=== PATIENT | male | born 1985 | race Caucasian/White ===

== ENCOUNTER 2021-02-05 10:56 | Emergency (ER) | payer MEDICAID ==
[~2021-02-05] VITALS: Ht 167.6 cm; Wt 68.8 kg
[~2021-02-05 10:56] MED LIST: MUPI15CR TP; NO HOME MEDS
[2021-02-05 11:07] VITALS: BP 135/86
[2021-02-05] MEDS ORDERED: LIDOcaine 1% W/epiNEPHrine 1:200,000 10ml vial IJ ONE (11:10)
[2021-02-05] MEDS ORDERED: CEPH250T PO (11:42)
[2021-02-05] MEDS ORDERED: SULF1TAB45 PO (11:42)
== END 2021-02-05 11:53 | disposition home or self-care (01) ==
LOC: ER 10:56
DX: L02.214 Cutaneous abscess of groin (principal)
CPT/HCPCS: 10060; 99283

== ENCOUNTER → 2021-03-16 | Emergency (ER) | payer MEDICAID ==
[~2021-03-16] VITALS: Ht 167.6 cm; Wt 70.5 kg
[~2021-03-16] MED LIST changes: +DOXY-135 PO; +LIDOcaine 1% W/epiNEPHrine 1:200,000 10ml vial IJ ONE
[2021-03-16 12:07] VITALS: BP 128/86
== END | disposition home or self-care (01) ==
LOC: ER 12:04
DX: L02.31 Cutaneous abscess of buttock (principal); Z79.899 Other long term (current) drug therapy
CPT/HCPCS: 10060; 99283

== ENCOUNTER 2021-08-28 18:18 | Emergency (ER) | payer OTHER, MEDICAID ==
[~2021-08-28] VITALS: Ht 167.6 cm; Wt 70.5 kg
[~2021-08-28 18:18] MED LIST changes: -DOXY-135 PO; -LIDOcaine 1% W/epiNEPHrine 1:200,000 10ml vial IJ ONE
[2021-08-28 18:33] VITALS: BP 131/83
[2021-08-28] MEDS ORDERED: IBUP-1986 PO (19:39)
== END 2021-08-28 19:58 | disposition home or self-care (01) ==
LOC: ER 18:18
DX: S63.8X1A Sprain of other part of right wrist and hand, initial encounter (principal); M25.531 Pain in right wrist; Z79.899 Other long term (current) drug therapy; V49.3XXA Car occupant (driver) (passenger) injured in unspecified nontraffic accident, initial encounter; Y93.89 Activity, other specified; Y92.89 Other specified places as the place of occurrence of the external cause; Y99.8 Other external cause status
CPT/HCPCS: 29125; 73090; 99283

== ENCOUNTER 2023-10-25 10:26 | Emergency (ER) | payer MEDICAID ==
[~2023-10-25] VITALS: Ht 167.6 cm; Wt 63.2 kg
[~2023-10-25 10:26] MED LIST changes: +IBUP-1986 PO
[2023-10-25 10:41] VITALS: BP 116/76; PULSE 85; RESP 18; TEMP 98.2; O2SAT 98
== END 2023-10-25 12:50 | disposition left against medical advice (07) ==
LOC: ER 10:27
DX: S09.90XA Unspecified injury of head, initial encounter (principal); Z79.899 Other long term (current) drug therapy; Z79.2 Long term (current) use of antibiotics; Y08.89XA Assault by other specified means, initial encounter; Y93.89 Activity, other specified; Y92.89 Other specified places as the place of occurrence of the external cause; Y99.8 Other external cause status
CPT/HCPCS: 70450; 99284

== ENCOUNTER 2023-10-25 13:50 | Emergency (ER) | payer MEDICAID ==
[~2023-10-25] VITALS: Ht 167.6 cm; Wt 63.0 kg
[2023-10-25 14:00] VITALS: BP 116/84; PULSE 74; TEMP 99.5; O2SAT 98
[2023-10-25 14:20] VITALS: RESP 16
[2023-10-25 15:18] LABS: ALBUMIN 3.7 G/DL (3.4-5.0); ANION GAP 6 (8-16); BLOOD UREA NITROGEN 26 MG/DL (7-18); BUN/CREATININE RATIO 32.5 (10.0-20.0); CALCIUM 8.2 MG/DL (8.5-10.1); CHLORIDE 101 MMOL/L (99-107); GLUCOSE 80 MG/DL (70-104); POTASSIUM 3.9 MMOL/L (3.5-5.1); SALICYLATE 1.2 MG/DL (4.0-20.0); SODIUM 138 MMOL/L (135-145); TOTAL CARBON DIOXIDE 31.2 MMOL/L (24-32); eCRCL 112 ML/MIN; eGFR > 90 ML/MIN
[2023-10-25 15:19] LABS: EOSINOPHILS # (AUTO) 0.3 X10'3 (0-0.9); WHITE BLOOD COUNT 7.5 X10'3 (4.5-11.0)
[2023-10-25 15:20] LABS: ACETAMINOPHEN < 2.0 UG/ML (10-30); ETHANOL < 10 MG/DL (<10)
[2023-10-25 15:21] LABS: BASOPHILS # (AUTO) 0.1 X10'3 (0-0.2); BASOPHILS % (AUTO) 1.1 % (0-1); EOSINOPHILS % (AUTO) 3.4 % (0-6); HEMATOCRIT 39.1 % (42.0-52.0); HEMOGLOBIN 13.1 g/dl (14.0-17.9); LYMPHOCYTES # (AUTO) 1.9 X10'3 (1.1-4.8); LYMPHOCYTES % (AUTO) 25.8 % (21-51); MEAN CORPUSCULAR HEMOGLOBIN 30.5 PG (27.0-31.0); MEAN CORPUSCULAR HGB CONC 33.6 g/dL (33.0-36.5); MEAN CORPUSCULAR VOLUME 90.8 FL (78-98); MEAN PLATELET VOLUME 7.3 FL (7.4-10.4); MONOCYTES # (AUTO) 0.8 X10'3 (0-0.9); MONOCYTES % (AUTO) 10.8 % (2-12); NEUTROPHILS # (AUTO) 4.4 X10'3 (1.8-7.7); NEUTROPHILS % (AUTO) 58.9 % (42-75); PLATELET COUNT 318 X10'3 (140-440); RED CELL DISTRIBUTION WIDTH 13.7 % (11.5-14.5)
[2023-10-25 15:46] LABS: BILIRUBIN,URINE NEGATIVE (Neg); CLARITY,URINE CLEAR (Clear); COLOR,URINE YELLOW (Yellow); GLUCOSE, URINE NEGATIVE (Neg); KETONES,URINE NEGATIVE (Neg); LEUKOCYTE ESTERASE ,URINE NEGATIVE (Neg); NITRITES, URINE NEGATIVE (Neg); OCCULT BLOOD,URINE TRACE-INTACT (Neg); PROTEIN,URINE NEGATIVE (Neg); UROBILINOGEN,URINE 0.2 E.U/dL (0.2-1.0)
[2023-10-25 15:53] LABS: URINE AMPHETAMINE SCREEN POSITIVE (Neg); URINE BARBITUATE SCREEN NEGATIVE (Neg); URINE BENZODIAZEPINES SCREEN NEGATIVE (Neg); URINE CANNABINOID SCREEN POSITIVE (Neg); URINE COCAINE SCREEN NEGATIVE (Neg); URINE METHADONE SCREEN NEGATIVE (Neg); URINE OPIATE SCREEN NEGATIVE (Neg); URINE PHENCYCLIDINE SCREEN NEGATIVE (Neg)
[2023-10-25 15:55] LABS: UA COLLECTION TYPE NON-SPECIFIED
[2023-10-25 15:57] LABS: SQUAMOUS EPITHELIAL CELL,UR FEW /LPF (FEW)
[2023-10-25 15:58] LABS: BACTERIA,URINE FEW /HPF (Neg); RBC,URINE 0-2 /HPF (0-2); SPERM FEW /HPF (NEGATIVE); WBC,URINE 0-4 /HPF (0-4)
== END 2023-10-25 16:59 | disposition home or self-care (01) ==
LOC: ER 13:50
DX: S09.90XA Unspecified injury of head, initial encounter (principal); Z20.822 Contact with and (suspected) exposure to COVID-19; F19.10 Other psychoactive substance abuse, uncomplicated; Z79.2 Long term (current) use of antibiotics; Z79.899 Other long term (current) drug therapy; Y08.89XA Assault by other specified means, initial encounter; Y93.89 Activity, other specified; Y92.89 Other specified places as the place of occurrence of the external cause; Y99.8 Other external cause status
CPT/HCPCS: 36415; 80048; 80305; 80320; 80329; 81001; 85025; 87811; 99283; 99284